=== PATIENT | male | born 1935 | race Caucasian/White ===

== ENCOUNTER 2018-04-28 01:46 | Inpatient (IN) | payer OTHER ==
[2018-04-17 09:24] LABS: ABSOLUTE EOSINOPHILS 0.2 thou/uL (0.0-0.7); ABSOLUTE LYMPHOCYTES 1.1 thou/uL (0.8-5.3); ABSOLUTE MONOCYTES 0.8 thou/uL (0.0-1.2); ABSOLUTE NEUTROPHILS 4.7 thou/uL (1.6-8.1); BASOPHILS 0.3 %; EOSINOPHILS 2.8 %; HEMATOCRIT 36.7 % (42.0-52.0); HEMOGLOBIN 12.5 gm/dL (14.0-18.0); LYMPHOCYTES 16.5 %; MCH 31.9 pg (26.0-34.0); MCV 93.7 fL (80.0-100.0); MONOCYTES 11.6 %; MPV 7.8 fl. (7.2-11.1); NUCLEATED RBCS 0 /100WBC; PLATELET COUNT* 228 thou/uL (150-400); POLYS 68.8 %; RBC 3.92 mil/uL (4.50-6.00); RDW-CV 14.6 % (10.5-14.5); WBC 6.8 thou/uL (4.0-11.0)
[2018-04-17 09:35] LABS: APTT 27.5 Seconds (25.0-31.3)
[2018-04-17 09:40] LABS: ALBUMIN 3.2 g/dL (3.4-5.0); CALCIUM 10.1 mg/dL (8.5-10.1); CREATININE 0.7 mg/dL (0.6-1.3); POTASSIUM 3.9 mmol/L (3.5-5.1); TOTAL BILIRUBIN 0.3 mg/dL (<0.1-1.0); TOTAL PROTEIN 6.4 g/dL (6.4-8.2)
[2018-04-17 10:41] LABS: ESR (SEDRATE) 15 mm/hr (0-20)
--- NOTE | 2018-04-17 14:14 | EKG ---
[place] [address] ELECTROCARDIOGRAM REPORT Name: JOSUE GRANT Room: PRE IN .R.#: [id number] Admission: Attend Phys: Miguel White Discharge: Date of : 39 Report #: [id number] THIS REPORT FOR: //name// [facility] Test Date: 2018-04-17 Test Time: 09:40:11 Pat Name: JOSUE GRANT Department: Room: Gender: M Manager Restaurant: : 1935 Requested By: Tyree Lopez Order Number: [id number] Reading MD: Tyree Casillas Measurements Intervals [place] Rate: 62 P: 27 NV: 155 QRS: -6 QRSD: 135 T: -71 QT: 382 QTc: 388 Interpretive Statements Sinus rhythm with junctional beats Atrial premature complexes LVH with IVCD and secondary repol abnrm ST depr, consider ischemia, inferior leads Anterior ST elevation, probably due to LVH Baseline wander in lead(s) I,II,III,aVR,aVF,V1,V4,V5 Compared to ECG 12/10/2007 12:28:56 Atrial premature complex(es) now present Early repolarization now present Possible ischemia now present ST (T wave) deviation now present Electronically Signed On 04-17-2018 14:13:55 FAMILY SERVICE AIDE by Tyree Casillas [email or web address] <ELECTRONICALLY SIGNED> By: Tyree Casillas MD, [facility] 04/17/18 1413 0940 Tyree Casillas MD, [facility] /EPI
[2018-04-17 23:09] LABS: GLYCOHEMOGLOBIN (HGB A1C) 5.3 % (4.8-5.6)
[~2018-04-28] VITALS: Ht 175.3 cm; Wt 69.9 kg
--- NOTE | ~2018-04-28 | OP ---
[address] [address] OPERATIVE REPORT Name: JOSUE GRANT Room: [address] IN M.R.#: [id number] Admission: 04/28/18 Attend Phys: Miguel White Discharge: Date of : 39 Report #: [id number] THIS REPORT FOR: //name// CC: Tyree Lopez Physician staff LIZZIE Bhatt DATE OF SERVICE: 04/28/2018 PREOPERATIVE DIAGNOSIS: Right hip advanced degenerative joint disease. POSTOPERATIVE DIAGNOSIS: Right hip advanced degenerative joint disease. PROCEDURE: Right total hip arthroplasty. SURGEON: Tyree Lopez DO, Resident. JALOUSIE INSTALLER: Kem Hendrix DO. ESTIMATED BLOOD LOSS: 300 mL. COMPLICATIONS: None. DRAINS: None. SPECIMEN REMOVED: None. ANTIBIOTICS: Two grams Ancef IV preoperatively. ANESTHESIA: General. ORTHOPEDIC IMPLANTS: Biomet total hip arthroplasty system. 1. Size 15 standard offset Taperloc femoral stem. 2. Size 60 acetabular shell with acetabular screws, 25 and 20 mm. 3. A 40-mm high-wall polyethylene liner. 4. A 40-mm standard length cobalt-chromium head. CONDITION OF THE PATIENT: Stable to PACU. INDICATIONS: The patient is a very pleasant 83-year-old male who I have seen in my clinic regarding right hip pain he has had for quite some time. He has unfortunately failed conservative treatment, including activity modification and anti-inflammatory medications. He had become essentially wheelchair bound and this was affecting his quality of life. He had x-rays consistent with end-stage degenerative joint disease with superior migration of the femoral head and [facility] [address] [place] [address] OPERATIVE REPORT Name: JOSUE GRANT Room: [address] IN .R.#: [id number] Admission: 04/28/18 Attend Phys: Miguel White Discharge: Date of : 39 Report #: [id number] near-complete collapse. I discussed the potential benefit of right total hip arthroplasty with him and his family. I discussed the procedure, risks, benefits, complications and indications in detail with him and his family. Risks discussed included, but not limited to infection, neurovascular injury, hardware failure, fracture dislocation and leg length discrepancy, no improvement in symptoms, need for further surgery, DVT, PE and anesthesia complications. He and his family did express understanding and wished to proceed with surgery. DESCRIPTION OF PROCEDURE: After consent was obtained, the patient was taken to the operative suite, placed in the supine position on the operating room table and was given benefit of general anesthesia. He was then placed in lateral decubitus position. Axillary roll was placed. All bony prominences were well padded. The right hip was then sterilely prepped and draped in the usual fashion. Preoperative timeout was obtained to confirm the correct patient, procedure and operative site. Surgery began with standard anterolateral approach incision, approximately 10 cm in length. Sharp dissection was taken down to the level of tensor fascia. A new knife was used and an incision was made in the fascia. Scissors were then used to release the tensor, both proximally and distally, until full release was noted, exposing the greater trochanter and gluteus medius. At this time, the gluteus was then released off the greater trochanter with electrocautery. This did expose the anterior hip capsule. Cautery was then used to perform a T capsulotomy. He had a large joint effusion, normal in appearance. He did have severely eburnated bone throughout the femoral head and neck region as well as the acetabulum. He also had large osteophytes, which were loose within the joint. Hip was then dislocated fairly easily. Femoral neck cut was then made approximately 1 fingerbreadth above the lesser trochanter. Femoral head and neck were then removed and again inspected and severely eburnated. The acetabulum was then exposed. Sequential reaming was then performed up to a size 59. This gave us good bleeding throughout. Again, he had some fairly significant superior acetabular wear. We then placed a final 60 mm acetabular shell. This had good purchase. We used the angled guide for appropriate version and inclination. Two acetabular screws were placed, both 25 and 20 mm. At this time, we placed a trial liner. Attention was then turned to the proximal femur. Box osteotome was utilized followed by rat tail rasp and sequential broaching. We progressed up to a size 15. This gave us good fit and fill of the proximal femur. Trial reduction was performed with a -3 neck length. We did obtain intraoperative pelvis x-ray at this point. This did confirm good position of the acetabular shell as well as good stem size. The hip was then again dislocated and trial femur was removed. The final 40 mm high-wall liner was placed and locked in place. The final size 15 stem was then impacted in place to appropriate depth. Trial reduction was again performed and a final 0 standard neck length was chosen. The 40 mm [facility] [address] [place] [address] OPERATIVE REPORT Name: JOSUE GRANT Room: [address] M.R.#: [id number] Admission: 04/28/18 Attend Phys: Miguel White Discharge: Date of : 39 Report #: [id number] cobalt-chromium head with 0 neck length was impacted under a clean trunnion. The hip was then reduced with good reduction maneuver. Hip was taken through range of motion. There was no dislocation or subluxation noted in all planes and was quite stable. The hip was then thoroughly irrigated. Ortho cocktail was injected. Capsular tissue was closed with #1 Vicryl in a mawvam-[id number]-bpotk fashion. Gluteus medius and minimus were then reapproximated to the greater trochanter utilizing a #5 Ti-Cron and bony bites. This was reinforced with #1 Vicryl in a [id number] fashion. Tensor fascia was reapproximated with a #1 Vicryl in a running fashion. Subcutaneous tissue was closed with 2-0 Vicryl in interrupted fashion, followed by running Monocryl stitch on the skin. This was covered with Dermabond. This was allowed to dry. Sterile dressing was applied. He was placed in an abductor pillow. He did tolerate the procedure well, without complications. He was taken to the recovery room in stable condition. All needle and sponge counts were correct x 2 at the end of the procedure. By: [id number] Lopez DO /tonya
[~2018-04-28 01:46] MED LIST: ASPIRIN325 PO; COQ-10100 MG PO; HYDROCHLOROTH12.5 M1 PO; IRON325 M1 PO; LIORESAL 10 MG10 MG PO; LUMIGAN2.5 M1 OP; MELATONIN5 M1 PO; REFRESH CLASSI1 EACH OPHTHALMIC; SERTRALINE HCL50 MG PO; SIMVASTATIN40 MG PO; UNICOMPLEX M TA1 TA1 PO
[2018-04-28 07:03] VITALS: BP 191/95
[2018-04-28 12:22] VITALS: BP 150/79
[2018-04-28 16:00] VITALS: BP 136/84
[2018-04-28] MEDS ORDERED: ELIQUIS2.5 MG PO (17:08)
[2018-04-28] MEDS ORDERED: NORCO 5-325 TA1 EACH PO (17:08)
[2018-04-28 22:40] VITALS: BP 131/64
[2018-04-29] VITALS: BP 120/61
[2018-04-29 04:00] VITALS: BP 138/57
[2018-04-29 05:01] LABS: HEMATOCRIT 29.7 % (42.0-52.0); HEMOGLOBIN 10.2 gm/dL (14.0-18.0)
[2018-04-29 08:39] VITALS: BP 126/64
[2018-04-29 16:04] VITALS: BP 164/76
[2018-04-29 21:00] VITALS: BP 137/61
[2018-04-30] VITALS: BP 138/53
[2018-04-30 04:00] VITALS: BP 121/61
[2018-04-30 04:32] LABS: HEMATOCRIT 28.5 % (42.0-52.0); HEMOGLOBIN 9.7 gm/dL (14.0-18.0)
[2018-04-30 08:00] VITALS: BP 148/57
[2018-04-30 12:54] VITALS: BP 148/57
[2018-04-30] MEDS ORDERED: NORCO 5-325 TA1 EACH PO (13:06)
== END 2018-04-30 16:35 | DRG 470 ==
LOC: M.SUR 01:46 → M.PRE 07:00 → M.TBA 10:16 → M.ORTHSURG 10:16 → EDSTATUS 10:43 → M.SUR 10:50 → M.ORTHSURG 11:23 → M.PRE 12:52 → M.SUR 13:40 → M.ORTHSURG 04-30 16:35
PROVIDERS: Orthopaedic Surgery; ADMIT Internal Medicine
PROC: 0SR901A Replacement of Right Hip Joint with Metal Synthetic Substitute, Uncemented, Open Approach (ICD-10-PCS; principal; 2018-04-28)
DX: M16.11 Unilateral primary osteoarthritis, right hip (principal); D62 Acute posthemorrhagic anemia; I10 Essential (primary) hypertension; E78.5 Hyperlipidemia, unspecified; H40.9 Unspecified glaucoma; F32.9 Major depressive disorder, single episode, unspecified; Z87.81 Personal history of (healed) traumatic fracture; Z79.82 Long term (current) use of aspirin; Z79.899 Other long term (current) drug therapy